=== PATIENT | female | born 1955 | race Caucasian/White ===

== ENCOUNTER 2016-08-25 18:25 | Emergency (ER) | payer MEDICARE ==
[2016-08-25 18:21] LABS: BASOPHILS 0.2 %; BASOPHILS ABSOLUTE 0.01 10/3/uL (0.0-0.16); EOSINOPHILS 0 %; ER CBC TAT 0 Hrs 08 Mins; HEMATOCRIT 39.2 % (36.0-48.0); IMMATURE GRANULOCYTES 0.5 %; IMMATURE GRANULOCYTES ABSOLUTE 0.03 10/3/uL (0.0-0.11); LYMPHOCYTES ABSOLUTE 0.77 10/3/uL (0.67-4.30); MANUAL DIFF NO %; MEAN CORPUS HGB CONC 33.2 g/dL (32.0-36.0); MEAN CORPUSCULAR HEMOGLOB 32.9 pg (26.0-34.0); MEAN CORPUSCULAR VOLUME 99.2 fL (80-100); MEAN PLATELET VOLUME 9.8 fL (9.2-13.0); MONOCYTES 12.4 %; MONOCYTES ABSOLUTE 0.73 10/3/uL (0.21-1.20); NEUTROPHILS 73.9 %; NEUTROPHILS ABSOLUTE 4.37 10/3/uL (2.02-8.40); PLATELET COUNT 209 10/3/uL (150-400); RBC DISTRIBUTION WIDTH 14.6 % (12.0-16.0); RED CELL COUNT 3.95 10/6/uL (4.0-5.6); WHITE BLOOD CELLS 5.9 10/3/uL (4.5-10.5)
[~2016-08-25 18:25] MED LIST: ACET500CAP PO; ASAB PO; CLARIT10 PO; COREG6 PO; IMDUR60 PO; KLOR-CON M2020 MEQ PO; L40 PO; LOP50 PO; MAGOX4 PO; METAMUCIL CAN7 OZ PO; MIRALAXPKT PO; PRIN2.5 PO
[2016-08-25 18:28] LABS: INTERNATIONAL NORMAL RATI 1.1 UNITS (-); PARTIAL THROMBO TIME 29.1 SEC (22.5-37.2)
[2016-08-25 18:39] LABS: PROTIME (NOT ORD) 14.1 SEC (12.0-14.5)
[2016-08-25 18:44] LABS: CALCIUM, SERUM 8.7 MG/DL (8.5-10.4); CHLORIDE, SERUM 102 MMOL/L (96-112); CO2 (CARBON DIOXIDE) 30 MMOL/L (24-34); CREATININE 0.91 MG/DL (0.55-1.02); GFR AFRICAN AMERICAN 78 ML/MIN (>=60); GFR NON AFRICAN AMERICAN 67 ML/MIN (>=60); POTASSIUM, SERUM 4.8 MMOL/L (3.5-5.3); SODIUM, SERUM 137 MMOL/L (135-148)
[2016-08-25 18:45] LABS: BUN (BLOOD UREA NITROGEN) 19 MG/DL (6-23); GLUCOSE, SERUM 121 MG/DL (60-99)
[2016-08-25 18:46] LABS: CHEST PAIN PROFILE TAT 0 Hrs 33 Mins; TROPONIN I 0.05 NG/ML (<0.05)
[2016-10-05] MEDS ORDERED: MAGOX4 PO (16:38)
[2016-10-05] MEDS ORDERED: REMERON30 MG PO (16:38)
[2016-10-05] MEDS ORDERED: PRIN2.5 PO (16:38)
[2016-10-05] MEDS ORDERED: KLOR-CON M2020 MEQ PO (16:48)
[2016-10-05] MEDS ORDERED: LEXAPRO20 PO (16:48)
[2016-10-05] MEDS ORDERED: ASAB PO (16:48)
[2016-10-05] MEDS ORDERED: IMDUR30 PO (16:48)
[2016-10-05] MEDS ORDERED: COREG6 PO (16:49)
[2016-10-05] MEDS ORDERED: ULTRAM50 PO (16:49)
[2016-10-05] MEDS ORDERED: SEROQUEL50 MG PO (16:49)
[2016-10-05] MEDS ORDERED: L40 PO (16:50)
[2016-10-05] MEDS ORDERED: ATV.5 PO (16:50)
[2016-10-05] MEDS ORDERED: ALEVE220 MG PO (16:51)
[2016-10-05] MEDS ORDERED: MIRALAX POWDER1 PKT PO (16:51)
[2016-10-05] MEDS ORDERED: NITROLINGUAL S4.9 GM SL (16:52)
== END 2016-08-25 21:43 | disposition home or self-care (01) ==
LOC: ER 18:25
PROVIDERS: Emergency Medicine
DX: R00.0 Tachycardia, unspecified (principal); I25.10 Atherosclerotic heart disease of native coronary artery without angina pectoris; Z95.810 Presence of automatic (implantable) cardiac defibrillator; Z88.6 Allergy status to analgesic agent; Z88.8 Allergy status to other drugs, medicaments and biological substances; Z79.82 Long term (current) use of aspirin; Z79.899 Other long term (current) drug therapy
CPT/HCPCS: 71010; 80048; 83735; 83880; 84443; 84484; 85025; 85610; 85730; 93005; 93288; 96374; 99285